=== PATIENT | female | born 1985 | race Caucasian/White ===

== ENCOUNTER 2016-06-21 17:56 | Emergency (ER) | payer MEDICAID, OTHER ==
[2016-06-21 19:01] VITALS: BP 135/80
--- NOTE | 2016-06-21 19:52 | UC ---
Throat Pain/Nasal Noe HPI - HPI Summary HPI Summary: 30 year old female with complaints of nasal congestion, sinus pain and pressure , and harsh cough for 2 weeks. 28 weeks . Denies sore throat or ear pain. Denies fever. Pt reports history of severe sinus infections requiring IV rocephin. She was treated approx 6 weeks ago for severe infection. - History of Current Complaint Chief Complaint: UCRespiratory Stated Complaint: COUGH,CONGESTION Time Seen by Provider: 06/21/16 19:40 Hx Obtained From: Patient Hx Last Menstrual Period: 02/13/15 ?: No Onset/Duration: Gradual Onset, Lasting Weeks - 2, Still Present Severity: Moderate Cough: Nonproductive Associated Signs & Symptoms: Positive: Sinus Discomfort, Nasal Discharge. Negative: Dysphagia, FB Sensation, Drooling, Wheezing, Hoarseness, Fever, Vomiting, Rash - Epiglottits Risk Factors Epiglottis Risk Factors: Negative - Allergies/Home Medications Allergies/Adverse Reactions: Allergies Allergy/AdvReac Type Severity Reaction Status Date / Time No Known Allergies Allergy Verified 06/21/16 19:01 Home Medications: Home Medications Ascorbic Acid TAB* [Vitamin C TAB*] 500 mg PO DAILY 06/21/16 [History Confirmed 06/21/16] Ferrous Sulfate TAB* 325 mg PO DAILY 06/21/16 [History Confirmed 06/21/16] Vitamin TAB* 1 tab PO DAILY 06/21/16 [History Confirmed 06/21/16] Vitamin E CAP* 1 tab PO DAILY 06/21/16 [History Confirmed 06/21/16] PMH/Surg Hx/FS Hx/Imm Hx Previously Healthy: Yes Endocrine History Of: Denies: Diabetes Cardiovascular History Of: Denies: Cardiac Disorders Respiratory History Of: Denies: Asthma - Surgical History Surgical History: Yes Surgery Procedure, Year, and Place: [facility] - Family History Known Family History: Negative: Hypertension, Diabetes - Social History Alcohol Use: None Alcohol Amount: once every 2-3 weeks Substance Use Type: None Substance Use Comment - Amount & Last Used: declines current use Smoking Status (MU): Former Smoker Type: Cigarettes Amount Used/How Often: "only when I drink" Length of Time of Smoking/Using Tobacco: 10 yrs Have You Smoked in the Last Year: Yes Household Exposure Type: Cigarettes Cessation Counseling: Patient Advised to Stop Review of Systems Constitutional: Negative Skin: Negative Eyes: Negative ENT: Nasal Discharge, Other - maxillary sinus pain and pressure with palpation Respiratory: Cough Cardiovascular: Negative Gastrointestinal: Negative Genitourinary: Negative Motor: Negative Neurovascular: Negative Musculoskeletal: Negative Neurological: Headache Psychological: Negative All Other Systems Reviewed And Are Negative: Yes Physical Exam Triage Information Reviewed: Yes Appearance: No Pain Distress, Well-Nourished, Ill-Appearing - mildly Vital Signs: Initial Vital Signs Temp 97.5 F 06/21/16 18:55 Pulse 84 06/21/16 18:55 Resp 16 06/21/16 18:55 BP 135/80 06/21/16 18:55 Pulse Ox 100 06/21/16 18:55 Vital Signs Reviewed: Yes Eyes: Positive: Conjunctiva Clear. Negative: Discharge ENT: Positive: Pharynx normal, Nasal congestion, Nasal drainage, TMs normal, Other: - Mild maxillary sinus pressure with palpation. Negative: Pharyngeal erythema, Tonsillar swelling Neck: Positive: Supple, Nontender, No Lymphadenopathy Respiratory: Positive: Lungs clear, Normal breath sounds. Negative: Crackles, Wheezing Cardiovascular: Positive: RRR, No Murmur Musculoskeletal: Positive: Strength Intact, ROM Intact Neurological: Positive: Alert, Muscle Tone Normal Psychological: Positive: Age Appropriate Behavior - pleasant and cooperative Skin: Negative: rashes, breakdown Throat Pain/Nasal Course/Dx - Differential Dx/Diagnosis Differential Diagnosis/HQI/PQRI: Sinusitis, URI Provider Diagnoses: Sinusitis Discharge - Discharge Plan Condition: Stable Disposition: HOME Prescriptions: Amoxicillin/Clavulanate TAB* [Augmentin TAB 875*] 875 mg PO BID #20 tab Fluticasone NASAL SPRAY 50MCG* [Flonase NASAL SPRAY 50MCG*] 2 spray BOTH NARES DAILY #1 btl Patient Education Materials: Sinusitis (ED), Amoxicillin/Clavulanate Potassium (By mouth) Additional Instructions: Follow up with your primary care and your [facility] [facility]
== END 2016-06-21 20:09 | disposition home or self-care (01) ==
LOC: UCCORT 17:56
DX: O26.893 Other specified pregnancy related conditions, third trimester (principal); Z3A.28 28 weeks gestation of pregnancy; J32.9 Chronic sinusitis, unspecified; Z72.0 Tobacco use
CPT/HCPCS: 99212; G0463